=== PATIENT | male | born 1945 | race Caucasian/White ===

== ENCOUNTER → 2023-05-14 10:05 | Outpatient (REF) | payer MEDICARE, OTHER, SELFPAY ==
[2023-05-14 11:07] LABS: % Basophils 0.4 % (0-2); % Eosinophils 1.8 % (0-6); % Immature Granulocytes 0.3 % (0-0.5); % Lymphocytes 19.1 % (20.5-51.1); % Monocytes 7.3 % (1.7-9.3); % Neutrophils 71.1 % (42.2-75.2); Absolute Eosinophils 0.1 10^3/uL (0-0.7); Absolute Lymphocytes 1.4 10^3/uL (1.2-3.4); Absolute Monocytes 0.5 10^3/uL (0.1-0.6); Absolute Neutrophils 5.2 10^3/uL (1.4-6.5); Hematocrit 47.2 % (39.0-52.0); Hemoglobin 16.2 g/dL (13.0-18.0); Mean Corp Hgb Conc. 34.3 g/dL (33.0-37.0); Mean Corpuscular Hgb 31.5 pg (27.0-31.0); Mean Corpuscular Volume 91.7 fL (80.0-94.0); Mean Platelet Volume 10.1 fL (7.4-10.4); Nucleated Red Blood Cells % 0 % (-); Platelet Count 258 10^3/uL (130-400); Red Blood Cell Count 5.15 10^6/uL (4.70-6.10); Red Cell Dist. Width 13.9 % (11.5-14.5); White Blood Cell Count 7.3 10^3/uL (4.8-10.8)
[2023-05-14 11:29] LABS: ALT (SGPT) 21 U/L (0-50); AST (SGOT) 19 U/L (17-59); Albumin 3.9 g/dl (3.5-5.0); Alkaline Phosphatase 88 U/L (38-126); Blood Urea Nitrogen 16 mg/dl (9-20); Calcium 8.7 mg/dl (8.4-10.2); Carbon Dioxide 27 mmol/L (22-30); Chloride 105 mmol/L (98-107); Glucose 120 mg/dl (70-99); HDL Cholesterol 44 mg/dl; LDL Cholesterol, Calculated 56 mg/dl; Potassium 4.3 mmol/L (3.5-5.1); Sodium 137 mmol/L (135-145); Total Bilirubin 1.2 mg/dl (0.2-1.3); Total Cholesterol 113 mg/dl (50-199); Total Protein 6.5 g/dl (6.3-8.2); Triglyceride 65 mg/dl (10-149); Very Low Density Lipoprotein 13 mg/dl (0-30); eGFR > 60.00
[2023-05-14 11:58] LABS: PSA, Total - Diagnostic < 0.06 ng/ml (0.0-4.0)
[2023-05-14 12:51] LABS: Glycohemoglobin (HgbA1c) 6.7 % (4.0-5.6)
== END ==
LOC: REG 10:05
PROVIDERS: ATTENDING PHYSICIAN Family Medicine; OTHER PHYSICIAN Family Medicine; OTHER PHYSICIAN Urology; REFERRING PHYSICIAN Internal Medicine
DX: I10 Essential (primary) hypertension (principal); E78.2 Mixed hyperlipidemia; E11.65 Type 2 diabetes mellitus with hyperglycemia; I48.21 Permanent atrial fibrillation; C61 Malignant neoplasm of prostate
CPT/HCPCS: 36415; 80053; 80061; 83036; 84153; 85025

== ENCOUNTER → 2023-08-15 08:57 | Outpatient (REF) | payer MEDICARE, OTHER, SELFPAY ==
[2023-08-15 09:46] LABS: % Basophils 0.3 % (0-2); % Eosinophils 1.9 % (0-6); % Immature Granulocytes 0.3 % (0-0.5); % Lymphocytes 20.2 % (20.5-51.1); % Monocytes 8.2 % (1.7-9.3); % Neutrophils 69.1 % (42.2-75.2); Absolute Eosinophils 0.1 10^3/uL (0-0.7); Absolute Lymphocytes 1.4 10^3/uL (1.2-3.4); Absolute Monocytes 0.6 10^3/uL (0.1-0.6); Absolute Neutrophils 4.7 10^3/uL (1.4-6.5); Hemoglobin 16.3 g/dL (13.0-18.0); Mean Corp Hgb Conc. 34.7 g/dL (33.0-37.0); Mean Corpuscular Hgb 31.2 pg (27.0-31.0); Mean Corpuscular Volume 89.9 fL (80.0-94.0); Mean Platelet Volume 10.2 fL (7.4-10.4); Nucleated Red Blood Cells % 0 % (-); Platelet Count 251 10^3/uL (130-400); Red Blood Cell Count 5.23 10^6/uL (4.70-6.10); Red Cell Dist. Width 13.4 % (11.5-14.5); White Blood Cell Count 6.8 10^3/uL (4.8-10.8)
[2023-08-15 10:53] LABS: ALT (SGPT) 21 U/L (0-50); AST (SGOT) 21 U/L (17-59); Alkaline Phosphatase 85 U/L (38-126); Blood Urea Nitrogen 19 mg/dl (9-20); Calcium 8.8 mg/dl (8.4-10.2); Carbon Dioxide 24 mmol/L (22-30); Chloride 104 mmol/L (98-107); Glucose 110 mg/dl (70-99); HDL Cholesterol 43 mg/dl; LDL Cholesterol, Calculated 65 mg/dl; Potassium 4.1 mmol/L (3.5-5.1); Sodium 138 mmol/L (135-145); Total Bilirubin 1.1 mg/dl (0.2-1.3); Total Cholesterol 123 mg/dl (50-199); Total Protein 6.6 g/dl (6.3-8.2); Triglyceride 75 mg/dl (10-149); Very Low Density Lipoprotein 15 mg/dl (0-30); eGFR > 60.00
[2023-08-15 12:29] LABS: Glycohemoglobin (HgbA1c) 6.7 % (4.0-5.6)
== END ==
LOC: REG 08:57
PROVIDERS: ATTENDING PHYSICIAN Family Medicine; FAMILY PHYSICIAN Physician Assistant Medical; OTHER PHYSICIAN Family Medicine; REFERRING PHYSICIAN Internal Medicine
DX: R06.02 Shortness of breath (principal); E78.2 Mixed hyperlipidemia; I10 Essential (primary) hypertension; E11.65 Type 2 diabetes mellitus with hyperglycemia; I48.21 Permanent atrial fibrillation
CPT/HCPCS: 36415; 71046; 80053; 80061; 83036; 85025

== ENCOUNTER → 2023-11-27 09:17 | Outpatient (REF) | payer MEDICARE, OTHER, SELFPAY ==
[2023-11-27 11:48] LABS: % Basophils 0.4 % (0-2); % Eosinophils 1.9 % (0-6); % Immature Granulocytes 0.3 % (0-0.5); % Lymphocytes 20.7 % (20.5-51.1); % Monocytes 8.6 % (1.7-9.3); % Neutrophils 68.1 % (42.2-75.2); Absolute Eosinophils 0.1 10^3/uL (0-0.7); Absolute Lymphocytes 1.5 10^3/uL (1.2-3.4); Absolute Monocytes 0.6 10^3/uL (0.1-0.6); Absolute Neutrophils 4.8 10^3/uL (1.4-6.5); Hematocrit 45.9 % (39.0-52.0); Hemoglobin 15.7 g/dL (13.0-18.0); Mean Corp Hgb Conc. 34.2 g/dL (33.0-37.0); Mean Corpuscular Hgb 30.9 pg (27.0-31.0); Mean Corpuscular Volume 90.4 fL (80.0-94.0); Mean Platelet Volume 10.2 fL (7.4-10.4); Nucleated Red Blood Cells % 0 % (-); Platelet Count 254 10^3/uL (130-400); Red Blood Cell Count 5.08 10^6/uL (4.70-6.10); Red Cell Dist. Width 13.3 % (11.5-14.5)
[2023-11-27 12:10] LABS: ALT (SGPT) 18 U/L (0-50); AST (SGOT) 20 U/L (17-59); Alkaline Phosphatase 82 U/L (38-126); Blood Urea Nitrogen 17 mg/dl (9-20); Carbon Dioxide 26 mmol/L (22-30); Chloride 104 mmol/L (98-107); Glucose 105 mg/dl (70-99); HDL Cholesterol 39 mg/dl; LDL Cholesterol, Calculated 69 mg/dl; Potassium 4.2 mmol/L (3.5-5.1); Sodium 140 mmol/L (135-145); Total Bilirubin 1.1 mg/dl (0.2-1.3); Total Cholesterol 122 mg/dl (50-199); Total Protein 6.6 g/dl (6.3-8.2); Triglyceride 71 mg/dl (10-149); Very Low Density Lipoprotein 14 mg/dl (0-30); eGFR > 60.00
[2023-11-27 14:07] LABS: Glycohemoglobin (HgbA1c) 6.6 % (4.0-5.6)
== END ==
LOC: REG 09:17
PROVIDERS: ATTENDING PHYSICIAN Family Medicine; OTHER PHYSICIAN Family Medicine; REFERRING PHYSICIAN Internal Medicine
DX: I10 Essential (primary) hypertension (principal); E78.2 Mixed hyperlipidemia; E11.65 Type 2 diabetes mellitus with hyperglycemia; I48.21 Permanent atrial fibrillation
CPT/HCPCS: 36415; 80053; 80061; 83036; 85025

== ENCOUNTER → 2024-03-04 09:15 | Outpatient (REF) | payer MEDICARE, OTHER, SELFPAY ==
[2024-03-04 10:02] LABS: % Basophils 0.4 % (0-2); % Eosinophils 1.7 % (0-6); % Immature Granulocytes 0.4 % (0-0.5); % Lymphocytes 19.7 % (20.5-51.1); % Monocytes 7.4 % (1.7-9.3); % Neutrophils 70.4 % (42.2-75.2); Absolute Eosinophils 0.1 10^3/uL (0-0.7); Absolute Lymphocytes 1.5 10^3/uL (1.2-3.4); Absolute Monocytes 0.6 10^3/uL (0.1-0.6); Absolute Neutrophils 5.3 10^3/uL (1.4-6.5); Hematocrit 47.6 % (39.0-52.0); Hemoglobin 15.8 g/dL (13.0-18.0); Mean Corp Hgb Conc. 33.2 g/dL (33.0-37.0); Mean Corpuscular Hgb 30.7 pg (27.0-31.0); Mean Corpuscular Volume 92.6 fL (80.0-94.0); Mean Platelet Volume 9.7 fL (7.4-10.4); Nucleated Red Blood Cells % 0 % (-); Platelet Count 245 10^3/uL (130-400); Red Blood Cell Count 5.14 10^6/uL (4.70-6.10); Red Cell Dist. Width 13.3 % (11.5-14.5); White Blood Cell Count 7.5 10^3/uL (4.8-10.8)
[2024-03-04 10:33] LABS: ALT (SGPT) 23 U/L (0-50); AST (SGOT) 20 U/L (17-59); Albumin 4.1 g/dl (3.5-5.0); Alkaline Phosphatase 78 U/L (38-126); Blood Urea Nitrogen 17 mg/dl (9-20); Calcium 8.7 mg/dl (8.4-10.2); Carbon Dioxide 28 mmol/L (22-30); Chloride 103 mmol/L (98-107); Glucose 118 mg/dl (70-99); HDL Cholesterol 43 mg/dl; LDL Cholesterol, Calculated 65 mg/dl; Potassium 4.8 mmol/L (3.5-5.1); Sodium 139 mmol/L (135-145); Total Bilirubin 0.9 mg/dl (0.2-1.3); Total Cholesterol 120 mg/dl (50-199); Total Protein 6.6 g/dl (6.3-8.2); Triglyceride 61 mg/dl (10-149); Very Low Density Lipoprotein 12 mg/dl (0-30); eGFR > 60.00
[2024-03-04 11:03] LABS: TSH 3.25 uIU/ml (0.47-4.68)
[2024-03-04 11:35] LABS: Glycohemoglobin (HgbA1c) 6.7 % (4.0-5.6)
== END ==
LOC: REG 09:15
PROVIDERS: ATTENDING PHYSICIAN Family Medicine; OTHER PHYSICIAN Internal Medicine; REFERRING PHYSICIAN Family Medicine
DX: I48.0 Paroxysmal atrial fibrillation (principal); E11.9 Type 2 diabetes mellitus without complications; E78.2 Mixed hyperlipidemia; E11.65 Type 2 diabetes mellitus with hyperglycemia; M17.12 Unilateral primary osteoarthritis, left knee; I10 Essential (primary) hypertension
CPT/HCPCS: 36415; 80053; 80061; 83036; 84443; 85025

== ENCOUNTER → 2024-05-29 08:32 | Outpatient (REF) | payer MEDICARE, OTHER, SELFPAY ==
[2024-05-29 09:15] LABS: % Basophils 0.4 % (0-2); % Eosinophils 1.9 % (0-6); % Immature Granulocytes 0.4 % (0-0.5); % Lymphocytes 18.4 % (20.5-51.1); % Monocytes 7.9 % (1.7-9.3); Absolute Eosinophils 0.2 10^3/uL (0-0.7); Absolute Lymphocytes 1.5 10^3/uL (1.2-3.4); Absolute Monocytes 0.7 10^3/uL (0.1-0.6); Absolute Neutrophils 5.9 10^3/uL (1.4-6.5); Hematocrit 46.7 % (39.0-52.0); Hemoglobin 16.1 g/dL (13.0-18.0); Mean Corp Hgb Conc. 34.5 g/dL (33.0-37.0); Mean Corpuscular Hgb 30.8 pg (27.0-31.0); Mean Corpuscular Volume 89.5 fL (80.0-94.0); Mean Platelet Volume 10.2 fL (7.4-10.4); Nucleated Red Blood Cells % 0 % (-); Platelet Count 272 10^3/uL (130-400); Red Blood Cell Count 5.22 10^6/uL (4.70-6.10); Red Cell Dist. Width 13.5 % (11.5-14.5); White Blood Cell Count 8.3 10^3/uL (4.8-10.8)
[2024-05-29 10:26] LABS: Glycohemoglobin (HgbA1c) 6.7 % (4.0-5.6)
[2024-05-29 11:50] LABS: ALT (SGPT) 24 U/L (0-50); AST (SGOT) 21 U/L (17-59); Albumin 4.4 g/dl (3.5-5.0); Alkaline Phosphatase 85 U/L (38-126); Blood Urea Nitrogen 17 mg/dl (9-20); Carbon Dioxide 23 mmol/L (22-30); Chloride 102 mmol/L (98-107); Glucose 116 mg/dl (70-99); HDL Cholesterol 40 mg/dl; LDL Cholesterol, Calculated 63 mg/dl; Potassium 4.2 mmol/L (3.5-5.1); Sodium 137 mmol/L (135-145); Total Bilirubin 1.1 mg/dl (0.2-1.3); Total Cholesterol 117 mg/dl (50-199); Total Protein 6.8 g/dl (6.3-8.2); Triglyceride 73 mg/dl (10-149); Very Low Density Lipoprotein 14 mg/dl (0-30); eGFR > 60.00
[2024-05-29 11:55] LABS: PSA, Total - Screen < 0.06 ng/ml (0.0-4.0); TSH 3.48 uIU/ml (0.47-4.68)
== END ==
LOC: REG 08:32
PROVIDERS: ATTENDING PHYSICIAN Family Medicine; OTHER PHYSICIAN Family Medicine; OTHER PHYSICIAN Urology; REFERRING PHYSICIAN Internal Medicine
DX: I48.0 Paroxysmal atrial fibrillation (principal); E11.9 Type 2 diabetes mellitus without complications; E78.2 Mixed hyperlipidemia; E11.65 Type 2 diabetes mellitus with hyperglycemia; M17.12 Unilateral primary osteoarthritis, left knee; I10 Essential (primary) hypertension; Z12.5 Encounter for screening for malignant neoplasm of prostate; Z00.00 Encounter for general adult medical examination without abnormal findings
CPT/HCPCS: 36415; 80053; 80061; 83036; 84443; 85025; G0103

== ENCOUNTER → 2024-08-29 08:13 | Outpatient (REF) | payer MEDICARE, OTHER, SELFPAY ==
[2024-08-29 09:22] LABS: % Basophils 0.4 % (0-2); % Eosinophils 1.8 % (0-6); % Immature Granulocytes 0.1 % (0-0.5); % Monocytes 7.8 % (1.7-9.3); % Neutrophils 72.9 % (42.2-75.2); Absolute Eosinophils 0.1 10^3/uL (0-0.7); Absolute Lymphocytes 1.3 10^3/uL (1.2-3.4); Absolute Monocytes 0.6 10^3/uL (0.1-0.6); Absolute Neutrophils 5.7 10^3/uL (1.4-6.5); Hematocrit 45.3 % (39.0-52.0); Hemoglobin 15.2 g/dL (13.0-18.0); Mean Corp Hgb Conc. 33.6 g/dL (33.0-37.0); Mean Corpuscular Hgb 30.9 pg (27.0-31.0); Mean Corpuscular Volume 92.1 fL (80.0-94.0); Mean Platelet Volume 10.4 fL (7.4-10.4); Nucleated Red Blood Cells % 0 % (-); Platelet Count 245 10^3/uL (130-400); Red Blood Cell Count 4.92 10^6/uL (4.70-6.10); Red Cell Dist. Width 13.7 % (11.5-14.5); White Blood Cell Count 7.9 10^3/uL (4.8-10.8)
[2024-08-29 10:05] LABS: ALT (SGPT) 18 U/L (0-50); AST (SGOT) 15 U/L (17-59); Albumin 4.1 g/dl (3.5-5.0); Alkaline Phosphatase 74 U/L (38-126); Blood Urea Nitrogen 17 mg/dl (9-20); Calcium 8.8 mg/dl (8.4-10.2); Carbon Dioxide 25 mmol/L (22-30); Chloride 109 mmol/L (98-107); Glucose 101 mg/dl (70-99); HDL Cholesterol 40 mg/dl; LDL Cholesterol, Calculated 54 mg/dl; Potassium 4.2 mmol/L (3.5-5.1); Sodium 142 mmol/L (135-145); Total Bilirubin 0.8 mg/dl (0.2-1.3); Total Cholesterol 105 mg/dl (50-199); Total Protein 6.7 g/dl (6.3-8.2); Triglyceride 58 mg/dl (10-149); Very Low Density Lipoprotein 11 mg/dl (0-30); eGFR > 60.00
[2024-08-29 11:04] LABS: Glycohemoglobin (HgbA1c) 6.6 % (4.0-5.6)
== END ==
LOC: REG 08:13
PROVIDERS: ATTENDING PHYSICIAN Family Medicine
DX: E11.69 Type 2 diabetes mellitus with other specified complication (principal); I10 Essential (primary) hypertension; E78.2 Mixed hyperlipidemia
CPT/HCPCS: 36415; 80053; 80061; 83036; 85025

== ENCOUNTER → 2024-11-05 07:20 | Outpatient (REF) | payer MEDICARE, OTHER, SELFPAY ==
[2024-11-05 08:19] LABS: Hematocrit 48.0 % (39.0-52.0); Hemoglobin 15.7 g/dL (13.0-18.0); Mean Corp Hgb Conc. 32.7 g/dL (33.0-37.0); Mean Corpuscular Volume 93.9 fL (80.0-94.0); Nucleated Red Blood Cells % 0 % (-); Platelet Count 236 10^3/uL (130-400); Red Cell Dist. Width 13.7 % (11.5-14.5)
[2024-11-05 08:57] LABS: ALT (SGPT) 19 U/L (0-50); AST (SGOT) 17 U/L (17-59); Albumin 4.1 g/dl (3.5-5.0); Alkaline Phosphatase 79 U/L (38-126); Blood Urea Nitrogen 17 mg/dl (9-20); Calcium 8.6 mg/dl (8.4-10.2); Carbon Dioxide 24 mmol/L (22-30); Chloride 107 mmol/L (98-107); Glucose 104 mg/dl (70-99); HDL Cholesterol 38 mg/dl; LDL Cholesterol, Calculated 60 mg/dl; Potassium 4.5 mmol/L (3.5-5.1); Sodium 138 mmol/L (135-145); Total Protein 6.6 g/dl (6.3-8.2); Very Low Density Lipoprotein 13 mg/dl (0-30); eGFR > 60.00
[2024-11-05 11:06] LABS: Glycohemoglobin (HgbA1c) 6.6 % (4.0-5.6)
== END ==
LOC: REG 07:20
PROVIDERS: ATTENDING PHYSICIAN Family Medicine; OTHER PHYSICIAN Family Medicine; OTHER PHYSICIAN Internal Medicine; REFERRING PHYSICIAN Urology
DX: I10 Essential (primary) hypertension (principal); E78.2 Mixed hyperlipidemia; E11.65 Type 2 diabetes mellitus with hyperglycemia
CPT/HCPCS: 36415; 80053; 80061; 83036; 85025

== ENCOUNTER → 2024-12-19 07:15 | Outpatient (REF) | payer MEDICARE, OTHER, SELFPAY | LOC: HWRCS 07:15 | PROVIDERS: ATTENDING PHYSICIAN Internal Medicine; FAMILY PHYSICIAN Family Medicine | DX: I48.21 Permanent atrial fibrillation (principal); R07.9 Chest pain, unspecified | CPT/HCPCS: 78452; 93017; A9500; J2785 ==

== ENCOUNTER → 2024-12-23 07:47 | Outpatient (REF) | payer MEDICARE, OTHER, SELFPAY ==
[2024-12-23 08:45] LABS: Hematocrit 46.8 % (39.0-52.0); Hemoglobin 15.9 g/dL (13.0-18.0); Mean Corp Hgb Conc. 34.0 g/dL (33.0-37.0); Mean Corpuscular Volume 92.1 fL (80.0-94.0); Nucleated Red Blood Cells % 0 % (-); Platelet Count 230 10^3/uL (130-400); Red Cell Dist. Width 13.7 % (11.5-14.5)
[2024-12-23 09:16] LABS: ALT (SGPT) 22 U/L (0-50); AST (SGOT) 16 U/L (17-59); Albumin 3.9 g/dl (3.5-5.0); Alkaline Phosphatase 80 U/L (38-126); Blood Urea Nitrogen 18 mg/dl (9-20); Calcium 8.6 mg/dl (8.4-10.2); Carbon Dioxide 24 mmol/L (22-30); Chloride 106 mmol/L (98-107); Glucose 206 mg/dl (70-99); Potassium 3.9 mmol/L (3.5-5.1); Sodium 136 mmol/L (135-145); Total Protein 6.6 g/dl (6.3-8.2); eGFR > 60.00
== END ==
LOC: REG 07:47
PROVIDERS: ATTENDING PHYSICIAN Internal Medicine; FAMILY PHYSICIAN Family Medicine; REFERRING PHYSICIAN Family Medicine
DX: R94.39 Abnormal result of other cardiovascular function study (principal); I10 Essential (primary) hypertension; E78.2 Mixed hyperlipidemia; E11.65 Type 2 diabetes mellitus with hyperglycemia; I48.21 Permanent atrial fibrillation; I49.3 Ventricular premature depolarization; R60.0 Localized edema; I87.2 Venous insufficiency (chronic) (peripheral)
CPT/HCPCS: 36415; 80053; 85025

== ENCOUNTER 2024-12-26 08:23 | Day surgery (SDC) | payer MEDICARE, OTHER, SELFPAY ==
[2024-12-26] VITALS (13 sets, daily range): BP systolic 113–137; BP diastolic 64–80; BMI 42.0
[2024-12-26 09:31] LABS: Glucose - Point of Care 107 mg/dl (70-99)
[2024-12-26] MEDS: LOW STRENGTH ASPIRIN 243 MG PO (09:38)
[2024-12-26] MEDS: NSS 354 ML IV (09:41)
[2024-12-26 10:32] LABS: ACT-LR - POC 380 Seconds (116-155)
--- NOTE | 2024-12-26 11:01 | ITS.CL.PN ---
Applications Systems Engineer - Procedure Note
Procedure
Procedure Note:
CARDIAC CATHETERIZATION REPORT
Date of Procedure: 12/26/2024
Referring: Dr. Cameron Irizarry MD
Indication: Atypical chest pain, positive cardiac stress test
PROCEDURE(S)
1. left heart catheterization
2. coronary angiography
3. IVUS LAD
4. PCI with ASTRID to LAD
ACCESS: 6F right radial artery (closure: radial band)
CATHETERS
1. 6F JR4
2. 6F JL4
3. EBU3.75 guide catheter
MODERATE SEDATION: 45 minutes of moderate sedation was utilized. An independent medical affairs director was present to assist with and help manage the patient's level of consciousness and physiologic status.
HEMODYNAMIC DATA
LV 129/16 (EDP 24) mmHg
AO 118/70 (mean 90) mmHg
CORONARY ANGIOGRAPHY
Dominance: Left
LM: large with minimal disease
LAD: Large vessel giving rise to a small diagonal branch and wrapping around the apex. There is a 70% stenosis in the mid LAD just after the diagonal and otherwise no significant coronary artery disease.
LCx: Large vessel giving rise to a large early rising OM1/ramus, large OM2, and moderate caliber OM3. There is diffuse mild disease.
RCA: Large vessel giving rise to a moderate caliber RPDA, moderate caliber RPL1, and small RPL2. There is diffuse mild disease.
PCI to mid LAD
Heparin was given to achieve ACT greater than 300. The left main was intubated with a 6 [place] EBU 3.75 guide catheter. A Runthrough wire was placed in the distal LAD. Initial lesion preparation performed with a 2.0 mm semicompliant balloon with
full expansion. IVUS was performed demonstrating a 3.25 mm distal and proximal reference vessel diameter and mild calcification with heavy plaque burden both proximal and distal to the site of severe stenosis. The IVUS catheter was used to
angiographically alvaro optimal disease free locations for proximal and distal landing. Further lesion preparation was performed with a 3.0 mm NC balloon to nominal pressure. Stenting was performed with a 3.25 x 28 mm Xience Skypoint drug-eluting
stent postdilated to high-pressure with a 3.25 mm NC balloon. After administration of intracoronary nitroglycerin, repeat IVUS demonstrated excellent stent sizing, expansion, and apposition with no edge dissections. Final angiographic result was
excellent. The wire and guide were removed and a TR band placed. The patient was loaded with 600 mg of Plavix and taken to recovery. Family was updated.
RADIATION: dose 919 mGy; DAP 48.5 Gy*cm2; fluoroscopy time 10.7 min
CONCLUSIONS
1. 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
2. Mildly elevated LV filling pressure and no aortic stenosis.
3. Successful IVUS-guided and optimized PCI with ASTRID to mid-LAD (3.25x28 mm Xience Skypoint ASTRID post-dilated to high pressure with a 3.25 mm NC balloon)
RECOMMENDATIONS
1. Triple therapy for 1 week then Plavix/Eliquis for 6 months at least.
2. Aggressive secondary prevention of coronary artery disease. Will increase statin to high intensity.
Copy to: Dr. Cameron Irizarry MD (fundraiser); Dr. Ramiro Leon MD (PCP)
Signed: Felice Montanez MD, PhD
--- NOTE | 2024-12-26 14:25 | W.PN.UPDATE ---
Update Note
Progress Note Update
79 yo WM s/p PCI LAD (same day). He denies cp, sob, zoe diet, voiding, amb w/o dizziness, EKG Afib no ST changes, R rad site c/d/i no HT. He will be on triple therapy ASA/Plavix and Eliquis for 1 week then stop ASA. He will hold metformin post
procedure and resume on Sunday am. Cardiac rehab c/s. He will f/u [facility] in 2 weeks. He is for d/c home after 4pm.
== END 2024-12-26 16:00 | disposition home or self-care (01) ==
LOC: CATH 08:23
PROVIDERS: ATTENDING PHYSICIAN Student in an Organized Health Care Education/Training Program; FAMILY PHYSICIAN Family Medicine; OTHER PHYSICIAN Internal Medicine
DX: I25.10 Atherosclerotic heart disease of native coronary artery without angina pectoris (principal); I48.21 Permanent atrial fibrillation; I49.3 Ventricular premature depolarization; I10 Essential (primary) hypertension; E78.2 Mixed hyperlipidemia; E66.01 Morbid (severe) obesity due to excess calories; F17.290 Nicotine dependence, other tobacco product, uncomplicated; R94.39 Abnormal result of other cardiovascular function study; Z79.01 Long term (current) use of anticoagulants; Z79.84 Long term (current) use of oral hypoglycemic drugs; Z79.899 Other long term (current) drug therapy; Z68.41 Body mass index [BMI] 40.0-44.9, adult
CPT/HCPCS: 82962; 85347; 92978; 93005; 93458; 99152; 99153; C1725; C1753; C1769; C1874; C1894; C9600; Q9967

== ENCOUNTER → 2025-01-02 08:23 | Outpatient (REF) | payer MEDICARE, OTHER, SELFPAY | LOC: RCS 08:23 | PROVIDERS: ATTENDING PHYSICIAN Internal Medicine; FAMILY PHYSICIAN Family Medicine; OTHER PHYSICIAN Family Medicine | DX: I48.21 Permanent atrial fibrillation (principal); R07.9 Chest pain, unspecified | CPT/HCPCS: 93306 ==

== ENCOUNTER 2025-01-23 10:37 | Outpatient (RCR) | payer MEDICARE, OTHER, SELFPAY ==
[2025-01-14 09:37] LABS: Glucose - Point of Care 137 mg/dl (70-99)
[2025-01-14 10:11] LABS: Glucose - Point of Care 110 mg/dl (70-99)
[2025-01-19 09:27] LABS: Glucose - Point of Care 202 mg/dl (70-99)
[2025-01-19 10:29] LABS: Glucose - Point of Care 118 mg/dl (70-99)
[2025-01-21 09:34] LABS: Glucose - Point of Care 168 mg/dl (70-99)
[2025-01-21 10:33] LABS: Glucose - Point of Care 86 mg/dl (70-99)
[2025-01-23 09:21] LABS: Glucose - Point of Care 121 mg/dl (70-99)
[2025-01-23 10:18] LABS: Glucose - Point of Care 135 mg/dl (70-99)
== END 2025-01-23 23:59 | disposition home or self-care (01) ==
LOC: CRHB 10:37
PROVIDERS: ATTENDING PHYSICIAN Internal Medicine
DX: I25.10 Atherosclerotic heart disease of native coronary artery without angina pectoris (principal); Z95.5 Presence of coronary angioplasty implant and graft
CPT/HCPCS: 82962; G0422; G0423

== ENCOUNTER → 2025-01-27 07:49 | Outpatient (REF) | payer MEDICARE, OTHER, SELFPAY ==
[2025-01-27 08:56] LABS: Hematocrit 47.6 % (39.0-52.0); Hemoglobin 15.6 g/dL (13.0-18.0); Mean Corp Hgb Conc. 32.8 g/dL (33.0-37.0); Mean Corpuscular Volume 92.8 fL (80.0-94.0); Nucleated Red Blood Cells % 0 % (-); Platelet Count 252 10^3/uL (130-400); Red Cell Dist. Width 13.8 % (11.5-14.5)
[2025-01-27 09:30] LABS: ALT (SGPT) 30 U/L (0-50); AST (SGOT) 22 U/L (17-59); Albumin 4.0 g/dl (3.5-5.0); Alkaline Phosphatase 75 U/L (38-126); Blood Urea Nitrogen 16 mg/dl (9-20); Calcium 8.8 mg/dl (8.4-10.2); Carbon Dioxide 26 mmol/L (22-30); Chloride 104 mmol/L (98-107); Glucose 116 mg/dl (70-99); HDL Cholesterol 35 mg/dl; LDL Cholesterol, Calculated 60 mg/dl; Potassium 4.2 mmol/L (3.5-5.1); Sodium 137 mmol/L (135-145); Total Protein 6.7 g/dl (6.3-8.2); Very Low Density Lipoprotein 15 mg/dl (0-30); eGFR > 60.00
[2025-01-27 09:39] LABS: Glycohemoglobin (HgbA1c) 6.6 % (4.0-5.9)
== END ==
LOC: REG 07:49
PROVIDERS: ATTENDING PHYSICIAN Internal Medicine; FAMILY PHYSICIAN Family Medicine; REFERRING PHYSICIAN Family Medicine
DX: E11.65 Type 2 diabetes mellitus with hyperglycemia (principal); I10 Essential (primary) hypertension; E78.2 Mixed hyperlipidemia
CPT/HCPCS: 36415; 80053; 80061; 83036; 85025

== ENCOUNTER 2025-02-20 10:01 | Outpatient (RCR) | payer MEDICARE, OTHER, SELFPAY ==
[2025-01-26 09:20] LABS: Glucose - Point of Care 180 mg/dl (70-99)
[2025-01-26 10:16] LABS: Glucose - Point of Care 113 mg/dl (70-99)
[2025-01-28 09:23] LABS: Glucose - Point of Care 161 mg/dl (70-99)
[2025-01-28 10:18] LABS: Glucose - Point of Care 113 mg/dl (70-99)
== END 2025-02-20 23:59 | disposition home or self-care (01) ==
LOC: CRHB 10:01
PROVIDERS: ATTENDING PHYSICIAN Internal Medicine
DX: I25.10 Atherosclerotic heart disease of native coronary artery without angina pectoris (principal); Z95.5 Presence of coronary angioplasty implant and graft
CPT/HCPCS: 82962; G0422; G0423

== ENCOUNTER 2025-03-25 10:01 | Outpatient (RCR) | payer MEDICARE, OTHER, SELFPAY | END 2025-03-25 23:59 | disposition home or self-care (01) | LOC: CRHB 10:01 | PROVIDERS: ATTENDING PHYSICIAN Internal Medicine | DX: I25.10 Atherosclerotic heart disease of native coronary artery without angina pectoris (principal); Z95.5 Presence of coronary angioplasty implant and graft | CPT/HCPCS: G0422; G0423 ==